=== PATIENT | male | born 1965 | race Caucasian/White ===

== ENCOUNTER 2016-08-24 11:13 | Emergency (ER) | payer MEDICAID ==
[2016-08-24 11:22] VITALS: BP 160/100; PULSE 90; RESP 14; TEMP 97.9; O2SAT 100
--- NOTE | 2016-08-24 12:22 | RAD ---
PROCEDURE: Right Knee Radiographs. HISTORY: COMPARISON: None available. FINDINGS: BONES: No acute displaced fracture. Mild degenerative changes. JOINTS: No dislocation. Mild medial compartment joint space narrowing. JOINT EFFUSION: Small suprapatellar joint effusion. OTHER FINDINGS: None. IMPRESSION: Small suprapatellar joint effusion. Degenerative changes. Mild medial compartment joint space narrowing.
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
== END 2016-08-24 13:15 | disposition home or self-care (01) ==
LOC: C.ER 11:13
DX: M25.561 Pain in right knee (principal)

== ENCOUNTER 2016-11-14 16:33 | Emergency (ER) | payer MEDICAID ==
[2016-11-14 16:57] VITALS: BMI 27.3
[2016-11-14 16:58] VITALS: BP 146/88; PULSE 102; RESP 18; TEMP 99.1; O2SAT 100
--- NOTE | 2016-11-14 17:20 | C.PDOC ---
History Of Present Illness 51 y/o male presents to ED with complaints of pain and swelling to suprapubic area for 2 days. Patient states he does does not shave area. (-) abdominal pain (-) dysuria (-) urinary frequency. Denies trauma, fever, n/v/d or any other complaints at this time. Time Seen by Provider: 11/14/16 17:09 Chief Complaint (Nursing): Abnormal Skin Integrity History Per: Patient History/Exam Limitations: no limitations Onset/Duration Of Symptoms: Days Quality Of Symptoms: Painful Past Medical History Reviewed: Historical Data, Nursing Documentation, Vital Signs Vital Signs: Last Vital Signs Temp 99.1 F 11/14/16 16:57 Pulse 102 H 11/14/16 16:57 Resp 18 11/14/16 16:57 BP 146/88 11/14/16 16:57 Pulse Ox 100 11/14/16 17:42 - Medical History PMH: Diabetes, HTN Family History: States: Unknown Family Hx - Social History Hx Tobacco Use: No Hx Alcohol Use: No Hx Substance Use: No - Immunization History Hx Tetanus Toxoid Vaccination: No Hx Influenza Vaccination: No Hx Pneumococcal Vaccination: No Review Of Systems Except As Marked, All Systems Reviewed And Found Negative. Constitutional: Negative for: Fever, Chills Gastrointestinal: Positive for: Abdominal Pain. Negative for: Nausea, Vomiting , Diarrhea Skin: Negative for: Rash Physical Exam - Physical Exam Appears: Non-toxic, No Acute Distress Skin: Warm, Dry Head: Atraumatic, Normacephalic Eye(s): bilateral: Normal Inspection, EOMI Nose: Normal Oral Mucosa: Moist Neck: Normal ROM, Supple Lymphatic: No Inguinal Node Tenderness Chest: Symmetrical Respiratory: No Accessory Muscle Use Gastrointestinal/Abdominal: Soft, No Tenderness, No Guarding, No Rebound, Other (2x3 cm area of induration with central scab, no flunctuance , no erythema over the mons pubic. ) Extremity: Normal ROM, Capillary Refill (<2 seconds) Neurological/Psych: Oriented x3, Normal Motor, Normal Sensation ED Course And Treatment O2 Sat by Pulse Oximetry: 100 (RA) Pulse Ox Interpretation: Normal Progress Note: Patient was discharged and advised to put warm compress on area and follow up in 2 days for wound check Disposition - Disposition Disposition: HOME/ ROUTINE Disposition Time: 17:23 Condition: STABLE Additional Instructions: Apply warm compresses. Monitor your sugar. Wound check in 2 days or sooner if symptoms persist or worsen. Prescriptions: Clindamycin [Cleocin] 300 mg PO Q6 #28 cap Naproxen [Naprosyn] 1 tab PO BID PRN #20 tab PRN Reason: Pain Instructions: Abscess (ED) - Clinical Impression Clinical Impression: Abscess, Cellulitis - Scribe Statement The provider has reviewed the documentation as recorded by the Ishmael Jones All medical record entries made by the Ishmael were at my direction and personally dictated by me. I have reviewed the chart and agree that the record accurately reflects my personal performance of the history, physical exam, medical decision making, and the department course for this patient. I have also personally directed, reviewed, and agree with the discharge instructions and disposition.
== END 2016-11-14 18:00 | disposition home or self-care (01) ==
LOC: C.ER 16:33
DX: L02.211 Cutaneous abscess of abdominal wall (principal)

== ENCOUNTER 2016-11-23 16:34 | Emergency (ER) | payer MEDICAID ==
[2016-11-23 16:35] VITALS: BMI 27.3
[2016-11-23 16:41] VITALS: TEMP 98.5
[2016-11-23 17:10] VITALS: O2SAT 100
[2016-11-23 17:33] LABS: BASO % 0.7 % (0.0-2.0); EOS # 0.2 K/uL (0.0-0.7); EOS % 2.9 % (0.0-4.0); HEMATOCRIT 42.2 % (35.0-51.0); LYMPH # 2.6 K/uL (1.0-4.3); LYMPH % 34.7 % (20.0-40.0); MEAN CELL VOLUME 86.9 fL (80.0-94.0); MEAN CORPUSCULAR HEMOGLOBIN 29.1 pg (27.0-31.0); MEAN CORPUSCULAR HGB CONC 33.4 g/dL (33.0-37.0); MONO # 0.7 K/uL (0.0-0.8); MONO % 8.8 % (0.0-10.0); RED CELL DISTRIBUTION WIDTH 12.9 % (11.5-14.5); WHITE BLOOD COUNT 7.4 K/uL (4.8-10.8)
[2016-11-23 17:41] LABS: PARTIAL THROMBOPLASTIN TIME 29 SECONDS (21-34)
[2016-11-23 17:53] LABS: CHLORIDE 97 mmol/L (98-107); POTASSIUM 3.8 mmol/L (3.6-5.2); SODIUM 139 mmol/L (132-148)
[2016-11-23 17:55] LABS: BILIRUBIN,TOTAL 0.6 mg/dL (0.2-1.3); GFR AFRICAN-AMERICAN > 60
[2016-11-23 17:56] LABS: ALB/GLOB RATIO 1.1 (1.0-2.1); ALKALINE PHOSPHATASE 81 U/L (38-126); ALT/SGPT 36 U/L (21-72); AST/SGOT 35 U/L (17-59); BLOOD UREA NITROGEN 12 mg/dL (9-20); CALCIUM 8.9 mg/dl (8.6-10.4); CARBON DIOXIDE 27 mmol/L (22-30); GLUCOSE,RANDOM 222 mg/dL (75-110); TOTAL PROTEIN 7.6 g/dL (6.3-8.3)
--- NOTE | 2016-11-23 18:01 | C.PDOC ---
History Of Present Illness Patient presents to ED c/o intermittent episodes chest/epigastric cramping sensation associated with mild SOB over the last 2-3 days. 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 Patient denies cough, fever, palpitations, abdominal pain, nausea/vomiting. He admits to not always eating regularly due to his work schedule. Patient currently asymptomatic. Time Seen by Provider: 11/23/16 16:43 Chief Complaint (Nursing): Shortness Of Breath History Per: Patient History/Exam Limitations: no limitations Onset/Duration Of Symptoms: Days Current Symptoms Are (Timing): Better Quality: "Pain" Current Respiratory Medications: See Home Med List Severity: Mild Past Medical History Reviewed: Historical Data, Nursing Documentation, Vital Signs Vital Signs: Last Vital Signs Temp 98.5 F 11/23/16 16:41 Pulse 79 11/23/16 18:16 Resp 16 11/23/16 18:16 BP 143/98 H 11/23/16 18:16 Pulse Ox 100 11/23/16 18:32 - Medical History PMH: Diabetes, HTN, Hypercholesterolemia Family History: States: No Known Family Hx - Social History Hx Tobacco Use: No Hx Alcohol Use: No Hx Substance Use: No - Immunization History Hx Tetanus Toxoid Vaccination: No Hx Influenza Vaccination: No Hx Pneumococcal Vaccination: No Review Of Systems Except As Marked, All Systems Reviewed And Found Negative. Constitutional: Negative for: Fever, Chills Cardiovascular: Positive for: Chest Pain. Negative for: Palpitations Respiratory: Positive for: Shortness of Breath. Negative for: Cough Gastrointestinal: Negative for: Nausea, Vomiting, Abdominal Pain Skin: Negative for: Rash Physical Exam - Physical Exam Appears: Well, Non-toxic, No Acute Distress Skin: Normal Color, Warm, Dry, No Rash Chest: Symmetrical, No Tenderness Cardiovascular: Rhythm Regular Respiratory: Normal Breath Sounds, No Rales, No Rhonchi, No Wheezing Gastrointestinal/Abdominal: Normal Exam, Bowel Sounds, Soft, No Tenderness Extremity: Normal ROM, No Pedal Edema, No Calf Tenderness Pulses: Left Dorsalis Pedis: Normal, Right Dorsalis Pedis: Normal Neurological/Psych: Oriented x3 ED Course And Treatment - Laboratory Results Result Diagrams: 11/23/16 17:26 11/23/16 17:26 ECG: Interpreted By Me, Viewed By Me ECG Rhythm: Sinus Rhythm (77 bpm, normal axis, T wave inversions III, aVF - unchanged from prior EKG 07/29/15) ECG Interpretation: No Acute Changes O2 Sat by Pulse Oximetry: 100 (RA) Pulse Ox Interpretation: Normal - Other Rad CXR X-Ray: Viewed By Me, Read By Radiologist Interpretation: Accession No. : [id number]. Patient Name / ID : RADHA SCHMITT / [id number]. Exam Date : 11/23/2016 17:19:20 ( Approved ) . Study Comment : Sex / Age : M / 51Y. Creator : VICKY NASSAR MD. Dictator : VICKY NASSAR MD. Executive Business Coach : Facility Environmental Technician : VICKY NASSAR MD. Approver2 : Report Date : 11/23/2016 18:07:58. My Comment : . PROCEDURE: CHEST RADIOGRAPH, 1 VIEW. HISTORY: Shortness of breath. COMPARISON: 2015. FINDINGS: LUNGS: The lungs are well inflated and clear. PLEURA: No pneumothorax or pleural fluid seen. CARDIOVASCULAR: Normal. OSSEOUS STRUCTURES: No significant abnormalities. VISUALIZED UPPER ABDOMEN: Normal. OTHER FINDINGS: None. IMPRESSION: No active pulmonary disease. Progress Note: Blood work, CXR, EKG ordered and reviewed. Reevaluation Time: 18:35 Reassessment Condition: Improved (Patient reassessed, is resting comfortably, currently asymptomatic. Blood work, CXR, EKG unremarkable. Patient's symptoms more consistent with GI etiology, suspect GERD/gastritis. Patient given Rx for protonix, and instructed to follow up with PMD in 1-2 days. He understands he should return to ED if symptoms worsen.) Disposition Counseled Patient/Family Regarding: Studies Performed, Diagnosis, Need For Followup, Rx Given - Disposition Referrals: Selina Billingsley MD [Medical Doctor] - Disposition: HOME/ ROUTINE Disposition Time: 18:35 Condition: STABLE Additional Instructions: FOLLOW UP WITH DR BILLINGSLEY IN 1-2 DAYS USE MEDICATION DAILY IF SYMPTOMS PERSIST, FOLLOW UP WITH GASTROENTEROLOGY AND CARDIOLOGY WITHIN 1 WEEK RETURN TO ER IF SYMPTOMS WORSEN Prescriptions: Pantoprazole [Protonix EC Tab] 20 mg PO DAILY #30 ect Forms: [facility] (Turkish), General Discharge Instructions Print Language: [place] ISLANDER - POA Present On Arrival: None - Clinical Impression Clinical Impression: Dyspepsia
--- NOTE | 2016-11-23 18:09 | RAD ---
PROCEDURE: CHEST RADIOGRAPH, 1 VIEW HISTORY: Shortness of breath COMPARISON: 07/29/2015. FINDINGS: LUNGS: The lungs are well inflated and clear. PLEURA: No pneumothorax or pleural fluid seen. CARDIOVASCULAR: Normal. OSSEOUS STRUCTURES: No significant abnormalities. VISUALIZED UPPER ABDOMEN: Normal. OTHER FINDINGS: None. IMPRESSION: No active pulmonary disease.
[2016-11-23 18:17] VITALS: BP 143/98; PULSE 79; RESP 16
--- NOTE | 2016-11-24 11:00 | CARD ---
APPROVED REPORT EKG Measurement Heart [id number] MD 160P31 [id number] <Conclusion> Normal sinus rhythm T wave abnormality, consider inferior ischemia Abnormal ECG
== END 2016-11-23 18:43 | disposition home or self-care (01) ==
LOC: C.ER 16:34
DX: R10.13 Epigastric pain (principal)

== ENCOUNTER 2017-09-16 15:18 | Emergency (ER) | payer MEDICAID ==
[2017-09-16 15:18] VITALS: BMI 27.3
[2017-09-16 15:22] VITALS: BP 143/89; PULSE 100; RESP 18; TEMP 97.5; O2SAT 100
--- NOTE | 2017-09-16 15:55 | C.PDOC ---
History Of Present Illness 52 year old male presents to the ED complaining of right knee pain that began 2 days ago. Patient describes the pain as aching and worsened with movement. Patient denies any injury, fall, tingling, numbness, or weakness. Time Seen by Provider: 09/16/17 15:27 Chief Complaint (Nursing): Lower Extremity Problem/Injury History Per: Patient History/Exam Limitations: no limitations Onset/Duration Of Symptoms: Days Current Symptoms Are (Timing): Still Present Past Medical History Reviewed: Historical Data, Nursing Documentation, Vital Signs Vital Signs: Last Vital Signs Temp 97.5 F L 09/16/17 15:20 Pulse 100 H 09/16/17 15:20 Resp 18 09/16/17 15:20 BP 143/89 09/16/17 15:20 Pulse Ox 100 09/16/17 16:43 - Medical History PMH: Diabetes, HTN, Hypercholesterolemia Other Surgeries: Hx of surgeries Family History: States: No Known Family Hx - Social History Hx Tobacco Use: No Hx Alcohol Use: No Hx Substance Use: No - Immunization History Hx Tetanus Toxoid Vaccination: No Hx Influenza Vaccination: No Hx Pneumococcal Vaccination: No Review Of Systems Except As Marked, All Systems Reviewed And Found Negative. Musculoskeletal: Positive for: Other (Right knee pain ) Neurological: Negative for: Weakness, Numbness Physical Exam - Physical Exam Appears: Non-toxic, No Acute Distress Skin: Warm, Dry, No Ecchymosis Head: Atraumatic, Normacephalic Eye(s): bilateral: Normal Inspection Neck: Supple Chest: Symmetrical Extremity: Normal ROM (Right knee), Tenderness (Mild tenderness to anterior right knee ), No Calf Tenderness, No Deformity (Right knee), No Swelling (Right knee) Neurological/Psych: Oriented x3, Normal Speech Gait: Steady ED Course And Treatment O2 Sat by Pulse Oximetry: 100 (RA) Pulse Ox Interpretation: Normal Medical Decision Making Medical Decision Making: Impression: Right knee pain Plan: Motrin 600mg PO Progress: On reassessment, patient is resting comfortably, and is in no acute distress. Patient was instructed to follow up with PMD in 1-2 days for further evaluation. Disposition Counseled Patient/Family Regarding: Diagnosis, Need For Followup, Rx Given - Disposition Disposition: HOME/ ROUTINE Disposition Time: 15:54 Condition: GOOD Additional Instructions: Rx sent to [facility] pharmacy Please apply ice to area 15 minutes three times a day. Take Motrin as needed for pain every 6 hours, with food to not upset stomach. Follow up with orthopedic if pain persists over one week. 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 - Scribe Statement The provider has reviewed the documentation as recorded by the Scribe (Bing Harvey) All medical record entries made by the Scribe were at my direction and personally dictated by me. I have reviewed the chart and agree that the record accurately reflects my personal performance of the history, physical exam, medical decision making, and the department course for this patient. I have also personally directed, reviewed, and agree with the discharge instructions and disposition.
== END 2017-09-16 15:58 | disposition home or self-care (01) ==
LOC: C.ER 15:18
DX: M25.561 Pain in right knee (principal)

== ENCOUNTER 2018-03-19 08:17 | Emergency (ER) | payer MEDICAID ==
[2018-03-19 08:18] VITALS: BMI 27.3
[2018-03-19 08:46] VITALS: RESP 18; O2SAT 100
[2018-03-19] MEDS ORDERED: guaiFENesin 100 mg/5 ml Syrup UD PO STA (10:17)
[2018-03-19] MEDS ORDERED: guaiFENesin 100 mg/5 ml Syrup UD ONE (10:30)
[2018-03-19 10:39] LABS: BASO % 0.7 % (0.0-2.0); EOS # 0.1 K/uL (0.0-0.7); EOS % 2.4 % (0.0-4.0); HEMOGLOBIN 12.2 g/dL (12.0-18.0); LYMPH # 1.6 K/uL (1.0-4.3); LYMPH % 25.3 % (20.0-40.0); MEAN CELL VOLUME 89.1 fL (80.0-94.0); MEAN CORPUSCULAR HEMOGLOBIN 30.3 pg (27.0-31.0); MEAN CORPUSCULAR HGB CONC 33.9 g/dL (33.0-37.0); MEAN PLATELET VOLUME 7.9 fL (7.2-11.7); MONO # 0.6 K/uL (0.0-0.8); MONO % 9.8 % (0.0-10.0); NEUT # 3.9 K/uL (1.8-7.0); NEUT % 61.8 % (50.0-75.0); NRBC % 0.1 % (0.0-2.0); RBC 4.03 Mil/uL (4.40-5.90); RED CELL DISTRIBUTION WIDTH 13.5 % (11.5-14.5); WHITE BLOOD COUNT 6.3 K/uL (4.8-10.8)
--- NOTE | 2018-03-19 10:53 | RAD ---
Date of service: 03/19/2018 HISTORY: SOB COMPARISON: No prior. TECHNIQUE: Chest PA and lateral FINDINGS: LUNGS: No active pulmonary disease. PLEURA: No significant pleural effusion identified. No pneumothorax apparent. CARDIOVASCULAR: No aortic atherosclerotic calcification present. Normal cardiac size. No pulmonary vascular congestion. OSSEOUS STRUCTURES: No significant abnormalities. VISUALIZED UPPER ABDOMEN: Normal. OTHER FINDINGS: None. IMPRESSION: No active disease.
[2018-03-19 10:55] LABS: BLOOD UREA NITROGEN 12 mg/dL (9-20); CALCIUM 8.4 mg/dl (8.6-10.4); GFR NON-AFRICAN AMERICAN > 60
[2018-03-19 10:59] LABS: ALB/GLOB RATIO 1.3 (1.0-2.1); ALBUMIN 4.2 g/dL (3.5-5.0); ALT/SGPT 21 U/L (21-72); AST/SGOT 39 U/L (17-59)
--- NOTE | 2018-03-19 11:39 | C.PDOC ---
History Of Present Illness 53 years old male presents to ED for complaints of occasional burning epigatric abdominal pain that radiates to upper chest. Patient states symptoms improve with drinking cold milk. Denies SOB, chest pain or pressure, or any other c omplaints. Time Seen by Provider: 03/19/18 10:11 Chief Complaint (Nursing): Chest Pain History Per: Patient History/Exam Limitations: no limitations Onset/Duration Of Symptoms: Hrs Current Symptoms Are (Timing): Still Present Modifying Factors: None Exacerbating Factors: None Alleviating Factors: None Recent travel outside of the [place]: No Past Medical History Reviewed: Historical Data, Nursing Documentation, Vital Signs Vital Signs: Last Vital Signs Temp 98.5 F 03/19/18 08:43 Pulse 83 03/19/18 08:43 Resp 18 03/19/18 08:43 BP 139/89 03/19/18 08:43 Pulse Ox 100 03/19/18 08:43 - Medical History PMH: Diabetes, HTN, Hypercholesterolemia Family History: States: Unknown Family Hx - Social History Hx Tobacco Use: No Hx Alcohol Use: Yes Hx Substance Use: No - Immunization History Hx Tetanus Toxoid Vaccination: No Hx Influenza Vaccination: No Hx Pneumococcal Vaccination: No Review Of Systems Constitutional: Negative for: Fever, Chills Gastrointestinal: Positive for: Abdominal Pain (Epigastric that radiates to upper chest ). Negative for: Nausea, Vomiting, Diarrhea Skin: Negative for: Rash Neurological: Negative for: Weakness, Numbness Physical Exam - Physical Exam Appears: Non-toxic, No Acute Distress, Other (Obese [place] male. 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 ) Skin: Normal Color, Warm, Dry, No Rash Head: Atraumatic, Normacephalic Eye(s): bilateral: Normal Inspection, PERRL, EOMI Oral Mucosa: Moist Neck: Normal ROM, Supple Chest: Symmetrical (No positionaly or reporoducible chest pain. ), No Tenderness Cardiovascular: Rhythm Regular, No Murmur Respiratory: Normal Breath Sounds, No Rales, No Rhonchi, No Wheezing Gastrointestinal/Abdominal: Normal Exam, Bowel Sounds (Active ), Soft, No Tenderness, No Distention, No Guarding, No Rebound Extremity: Normal ROM Extremity: Bilateral: Atraumatic, Normal Color And Temperature, Normal ROM Pulses: Left Radial: Normal, Right Radial: Normal Neurological/Psych: Oriented x3, Normal Speech Gait: Steady ED Course And Treatment - Laboratory Results Result Diagrams: 03/19/18 10:35 03/19/18 10:35 Lab Interpretation: Normal (trop neg, slight elev bili (? Gilbert's)) ECG: Interpreted By Me ECG Rhythm: Sinus Rhythm ECG Interpretation: Normal Rate From EC O2 Sat by Pulse Oximetry: 100 (RA) Pulse Ox Interpretation: Normal - Radiology CXR: Interpreted by Me CXR Interpretation: Yes: No Acute Disease - Other Rad CXR X-Ray: Viewed By Me, Read By Radiologist Interpretation: IMPRESSION: No active disease. Reevaluation Time: :38 Reassessment Condition: Unchanged (remains asymptomatic) Medical Decision Making Medical Decision Making: Plan: * Motrin * Robitussin * CXR * Blood work * Flu AB Swab GERD: burning epigastric/cp no CV s/s improved with PO mild cardiac w/u neg. Disposition Doctor Will See Patient In The: Office Counseled Patient/Family Regarding: Studies Performed, Diagnosis - Disposition Referrals: [facility] [Outside] [employer] [facility] [Outside] [facility] [Outside] [facility] [Outside] Disposition: HOME/ ROUTINE Disposition Time: :38 Condition: GOOD Additional Instructions: continue protonix in AM GERD diet diet hygiene (avoid foods and practices which make GERD worse) outpatient follow-up in our outpatient Clinic for referral to GI as needed. Prescriptions: Pantoprazole [Protonix] 40 mg PO DAILY #30 ect Instructions: Chest Pain That Is Not Caused by the Heart (DC), Acid Reflux (Gastroesophageal Reflux Disease), Adult (DC) Forms: [facility] [employer] (Georgian) - Clinical Impression Clinical Impression: Chest discomfort - Scribe Statement The provider has reviewed the documentation as recorded by the Scribe Oswald Anglin All medical record entries made by the Scribe were at my direction and personally dictated by me. I have reviewed the chart and agree that the record accurately reflects my personal performance of the history, physical exam, medical decision making, and the department course for this patient. I have also personally directed, reviewed, and agree with the discharge instructions and disposition.
[2018-03-19 12:08] VITALS: BP 148/88; PULSE 88; TEMP 99.1
--- NOTE | 2018-03-20 17:17 | CARD ---
APPROVED REPORT Date of service: 03/19/2018 EKG Measurement Heart [id number] [place] [id number] <Conclusion> arm lead reversal, Normal sinus rhythm Abnormal ECG
== END 2018-03-19 12:14 | disposition home or self-care (01) ==
LOC: C.ER 08:17
DX: R07.89 Other chest pain (principal); E11.9 Type 2 diabetes mellitus without complications; I10 Essential (primary) hypertension; E78.00 Pure hypercholesterolemia, unspecified